=== PATIENT | female | born 1940 | race Caucasian/White ===

== ENCOUNTER → 2016-10-10 | Outpatient (CLI) | payer OTHER, BC ==
[~2016-10-10] MED LIST: ASPI325T39 PO; CHOL2000 PO; CLON0.5T3 PO; HYDR1TAB2 PO; LEVO150T9 PO; METO25TA3 PO; MISCCAP80 PO; MULT1CHW44 PO; PARO1TAB27 PO; PRLSR20 PO; RXC5 PO; SPRIN/30 INH; SYMIN160 INH; VNTHFA/IN INH
== END | disposition home or self-care (01) ==
LOC: C.LAB 14:10 → EDSTATUS 15:30 → C.LAB 15:32
PROVIDERS: ATTEND Surgery
DX: C34.90 Malignant neoplasm of unspecified part of unspecified bronchus or lung (principal)

== ENCOUNTER 2016-10-24 08:54 | Inpatient (IN) | payer OTHER, BC ==
[2016-10-16 15:21] VITALS: BMI 35.0
[~2016-10-24] VITALS: Ht 160 cm; Wt 97.0 kg
[2016-10-24] VITALS (33 sets, daily range): BP systolic 59–179; BP diastolic 40–107; PULSE 78–99; TEMP 36.5–36.9; O2SAT 90–98; Ht 160 cm; Wt 97.0 kg
[~2016-10-24 08:54] MED LIST changes: +DEXAMETHASONE SOD INJ 4 MG/ML VIAL ONE; +EpHEDrine SULFATE INJ 50 MG/ML AMP ONE; +FENTANYL CITRATE INJ 50 MCG/1 ML 2 ML VIAL ONE; +GLYCOPYRROLATE INJ 0.2 MG/ML VIAL ONE; -HYDR1TAB2 PO; +LACTATED RINGER'S 1000ML 1,000 ML IV SCH; +LIDOCAINE HCL 2% 2 ML VIAL (20MG/ML) ONE; +MIDAZOLAM HCL 1 MG/ML 2ML VIAL ONE; +NEOSTIGMINE METHYLSULFATE 5 MG/5 ML SYR ONE; +ONDANSETRON INJ 2 MG/ML 2 ML VIAL ONE; +PHENYLEPHRINE HCL INJ 10 MG/ML VIAL ONE; +PROPOFOL IV EMULSION 10 MG/ML 20 ML VIAL IV ONE; +ROCURONIUM BROMIDE 10 MG/ML 5 ML VIAL ONE; -RXC5 PO
[2016-10-24] MEDS ORDERED: NALOXONE HCL 0.4 MG/1 ML VIAL/CARP IV PRN (09:45)
[2016-10-24] MEDS ORDERED: EpHEDrine SULFATE INJ 50 MG/ML AMP IV PRN (09:45)
[2016-10-24] MEDS ORDERED: ATROPINE SULFATE 0.1 MG/ML 5ML SYR IV PRN (09:45)
[2016-10-24] MEDS ORDERED: MEPERIDINE HCL 25 MG/ML CARP IV PRN (09:45)
[2016-10-24] MEDS ORDERED: MoRPHine SULFATE 10 MG/ML CARP/VIAL IV PRN (09:45)
[2016-10-24] MEDS ORDERED: FLUMAZENIL 0.1 MG/1 ML 10 ML VIAL IV PRN (09:45)
[2016-10-24] MEDS ORDERED: ONDANSETRON INJ 2 MG/ML 2 ML VIAL IV PRN ×2 (09:45→14:30)
[2016-10-24] MEDS ORDERED: PHENYLEPHRINE 100MCG/ML 5ML SYR IV PRN (09:45)
[2016-10-24] MEDS ORDERED: LABETALOL HCL IV 5 MG/ML 20ML IV PRN (09:45)
[2016-10-24] MEDS ORDERED: HYDROmorphone INJ 1 MG/ML SYR IV PRN (09:45)
--- NOTE | 2016-10-24 10:18 | History & Physical Bridge Note ---
H&P Re-Evaluation Bridge Note: I have examined the patient, reviewed the History & Physical and in the interval since the performance of the History & Physical I have noted the following changes of clinical significance: No changes noted
[2016-10-24] MEDS ORDERED: BUPIVACAINE LIPOSOME 1/3% 266 MG/20 ML VIAL INFIL ONE (10:22)
[2016-10-24] MEDS ORDERED: SODIUM CHLORIDE 0.9% PF 50 ML VIAL ONE (10:22)
[2016-10-24] MEDS ORDERED: DEXAMETHASONE SOD INJ 4 MG/ML VIAL ONE (11:27)
[2016-10-24] MEDS ORDERED: ROCURONIUM BROMIDE 10 MG/ML 5 ML VIAL ONE (11:44)
[2016-10-24] MEDS ORDERED: ESMOLOL HCL 10 MG/ML 10 ML VIAL ONE (11:51)
[2016-10-24] MEDS ORDERED: FENTANYL CITRATE INJ 50 MCG/1 ML 2 ML VIAL ONE ×2 (12:21→13:26)
[2016-10-24] MEDS ORDERED: ONDANSETRON INJ 2 MG/ML 2 ML VIAL ONE (13:30)
[2016-10-24] MEDS ORDERED: PROPOFOL IV EMULSION 10 MG/ML 20 ML VIAL IV ONE ×3 (13:30)
[2016-10-24] MEDS ORDERED: MINERALS PO SCH (14:30)
[2016-10-24] MEDS ORDERED: MULTIPLE VITAMINS PO SCH (14:30)
[2016-10-24] MEDS ORDERED: ALBUTEROL HFA 8 GM INHALER INH PRN (14:30)
--- NOTE | 2016-10-24 15:15 | DIAGNOSTIC IMAGING REPORT ---
SINGLE VIEW CHEST CLINICAL HISTORY: Postoperative examination. Status post right middle lobe resection. FINDINGS: An AP, portable, upright chest radiograph is correlated with chest CT dated 09/27/2016. The examination is degraded by portable technique and patient rotation. The heart is enlarged and there is atherosclerotic calcification of the thoracic aorta. There is prominence of the central pulmonary vessels. There are postoperative changes and volume loss consistent with a right middle lobe resection. Airspace opacities are present at both lung bases. A chest tube is noted at the right apex. No large pleural effusion or pneumothorax is seen. The skeletal structures are osteopenic. Degenerative change is noted throughout the thoracic spine. Subcutaneous emphysema is noted along the right chest wall. IMPRESSION: 1. There are postoperative changes from right middle lobe resection. 2. A chest tube is present at the right apex. No pneumothorax is identified post procedure. 3. There are bibasilar airspace opacities. No large pleural effusion is seen. 4. Cardiomegaly with prominence of the central pulmonary vessels. Correlate clinically for evidence of mild congestive change. Electronically signed by: Carlton Toscano M.D. 10/24/2016 3:13 PM Dictated Date/Time: 10/24/2016 3:11 PM
--- NOTE | 2016-10-24 15:34 | Anesthesiology Progress Note ---
Anesthesia Post Op Note Date & Time Oct 24, 2016 at 15:33 Vital Signs Pain Intensity: 0 Vital Signs Past 12 Hours Date Time Temp Pulse Resp B/P Pulse Ox O2 Delivery O2 Flow Rate FiO2 10/24/16 15:20 17 10/24/16 15:20 76 17 127/50 10/24/16 15:15 78 21 129/53 97 10/24/16 15:15 76 21 10/24/16 15:11 121/57 10/24/16 15:10 76 15 10/24/16 15:10 78 15 96 10/24/16 15:06 130/58 10/24/16 15:05 80 18 10/24/16 15:05 79 18 96 10/24/16 15:00 86 16 10/24/16 15:00 85 16 141/49 93 10/24/16 15:00 36.0 81 18 141/49 98 Mask 10 10/24/16 09:18 36.9 85 20 179/96 96 Room Air Notes Mental Status: alert / awake / arousable, participated in evaluation Pt Amnestic to Procedure: Yes Nausea / Vomiting: adequately controlled Pain: adequately controlled Airway Patency, RR, SpO2: stable & adequate BP & HR: stable & adequate Hydration State: stable & adequate Anesthetic Complications: no major complications apparent
[2016-10-24] MEDS ORDERED: MoRPHine SULFATE 2 MG/ML CARP ONE (16:58)
[2016-10-24] MEDS: ACETAMINOPHEN IV 1,000 MG in EMPTY BAG 0 ML IV SCH (17:30)
[2016-10-24] MEDS ORDERED: NOREPINEPHRINE BIT INJ 8 MG in DEXTROSE 5% 500ML 500 ML IV PRN (17:30)
[2016-10-24] MEDS: D5W AND 1/2NSS 1,000 ML IV SCH (17:30)
[2016-10-24] MEDS: CEFAZOLIN IV 2,000 MG in DEXTROSE 5% 50ML 100 ML IV SCH (17:30)
[2016-10-24] MEDS: KETOROLAC TROMETHAMINE 15 MG/ML VIAL IV. SCH (17:39)
--- NOTE | 2016-10-24 17:39 | Medical Student: [facility] ---
Immediate Operative Summary Operative Date Oct 24, 2016. Pre-Operative Diagnosis Right middle lobe nodule Post-Operative Diagnosis Same as above Procedure(s) Performed Right thoracoscopy with wedge resection of right middle lobe followed by right middle lobectomy, removal of mediastinal lymph nodes, and chest tube placement Surgeon Dr. Major Blood Bank Calendar Control Clerk Surgeon(s) Burt Ramon PA-C Estimated Blood Loss 100 mL Findings Neoplasm of right middle lobe Specimens Wedge resection of right middle lobe, mediastinal lymph nodes (R12, 7), right middle lobe Drains Mathews catheter Anesthesia General/endotracheal intubation (double lumen) Complication(s) None Disposition Recovery Room / PACU
--- NOTE | 2016-10-24 18:13 | OPERATIVE REPORT ---
DATE OF OPERATION: 10/24/2016 REASON FOR PROCEDURE: Right middle lobe mass. POSTOPERATIVE DIAGNOSIS: Same. PROCEDURES: 1. Thoracoscopic wedge resection of right middle lobe. 2. Thoracoscopic right middle lobectomy. 3. Mediastinal lymph node dissection. SURGEON: Dr. Major. PICTURES EDITOR: Paul Ramon PA-C. SECOND PICTURES EDITOR: Yanely Hudson. ANESTHESIA: General anesthesia endotracheal intubation. INDICATION FOR PROCEDURE AND FINDINGS: Annette Pompa is a 76-year-old female with a history of cigarette smoking, who was found to have a mass, certainly that was suspicious in her right middle lobe. We had a long talk about this in the office and I felt that this could be resected. After much discussion, we elected to proceed with a biopsy and possible lobectomy. On 10/24/2016, the patient was brought to the operating room and underwent uncomplicated right thoracoscopy. I was able to find this mass and then I wedged it out. Dr. Dominic Howell felt that it was atypical, but he did not have enough tissue to call it a definite carcinoma on frozen section. I went ahead and decided to remove the middle lobe given the frozen section findings. I then performed a right middle lobectomy without difficulty with a lymph node dissection. We used an Exparel block. She tolerated it well. DESCRIPTION OF PROCEDURE: The patient was brought to the operating room and laid in the supine position. General anesthesia induced and endotracheal intubation was performed with a double lumen tube. The patient was placed in left lateral decubitus position, right chest prepped and draped in usual sterile fashion. Incision was made a bit anterior and interspace below the scapular tip. Upon entering the chest with 5 mm port infusing CO2, we then put a 5-mm port and we were able to see quite well. This was switched over to a 12-mm port with 10 mm 30 degree scope. I then made another incision anteriorly and inferiorly and then another incision a bit more medially at about the fourth interspace. With these 3 incisions, we were able to palpate this mass. I wedged this out and sent it off to the lab. While waiting for this, I mobilized the fissure between the upper lobe and middle lobe. I then also mobilized the fissure between the lower lobe and the middle lobe. She had very well-developed fissures. I also isolated the vein and when the frozen section came back as possibly carcinoma, I went ahead and divided the middle pulmonary vein. I then dissected out more medially until I completed the fissure. I took out several lymph nodes. I was able to go around the right middle lobe bronchus without difficulty and fired Endo-LA stapler. I then was able to get the one arterial branch to the right middle lobe and I fired the stapler across this. Lifting this up, it could be seen that there was another vein draining the middle lobe and I had to take this Endo-LA stapler. After this, I simply fired along the fissure and delivered the right middle lobe off the field. I then checked this with warm saline infused in the chest and I did not see evidence of a leak anywhere. 266 mg of Exparel were mixed with 60 mL of normal saline injected from the 2nd to the 11th rib and intercostal block intrathoracically. We then placed a chest tube through the anterior thoracoscopy port and directed it towards the apex. It was held in place with a heavy silk suture. 0 Vicryl was used to close the skin. She tolerated it well and was extubated in the room. Blood loss was negligible. I attest to the content of the Intraoperative Record and any orders documented therein. Any exceptio ns are noted below.
[2016-10-24] MEDS: DOCUSATE SODIUM 100 MG CAP PO SCH (20:40)
[2016-10-24] MEDS: LACTOBACILLUS ACIDOPHILUS (FLORANEX) TAB PO SCH (20:40)
[2016-10-24] MEDS: ASPIRIN 325 MG ECTAB PO SCH (20:40)
[2016-10-24] MEDS: BUDESONIDE/FORMOTEROL FUMARATE 160/4.5 60 PUFFS/INHALER INH SCH (20:41)
[2016-10-24] MEDS: METOCLOPRAMIDE HCL INJ 5 MG/ML 2 ML VIAL IV. SCH (20:41)
[2016-10-24] MEDS: PANTOprazole SOD 40 MG TAB PO SCH (20:42)
[2016-10-24] MEDS: METOPROLOL SUCC 25MG EXT REL TAB PO SCH (20:42)
[2016-10-25] VITALS (10 sets, daily range): BP systolic 92–185; BP diastolic 39–89; PULSE 71–88; TEMP 36.7–37.2; O2SAT 92–98
[2016-10-25] MEDS: MoRPHine SULFATE 2 MG/ML CARP IV PRN ×5 (00:42→23:58)
[2016-10-25] MEDS: KETOROLAC TROMETHAMINE 15 MG/ML VIAL IV. SCH ×3 (02:15→18:14)
[2016-10-25] MEDS: CEFAZOLIN IV 2,000 MG in DEXTROSE 5% 50ML 100 ML IV SCH (02:16)
[2016-10-25] MEDS: ACETAMINOPHEN IV 1,000 MG in EMPTY BAG 0 ML IV SCH ×3 (02:16→18:12)
--- NOTE | 2016-10-25 02:19 | Critical Care Consultation ---
Critical Care Consultation Date of Consultation: Oct 24, 2016 Late Entry Attending Physician: Rashard Major MD Reason for Consultation: Post Surgical Observation & Management History of Present Illness Annette Pompa is a 76yo female who presents to the ICU status post thorascopic wedge resection of right middle lobe, right middle lobectomy, mediastinal lymph node dissection by Dr. Major. According to Dr. Brown's operative record the mass was wedged out and felt to be atypical however there was not enough tissue for a complete frozen section and thus he continued with the right middle lobectomy and lymph node dissection. He did use an Exparel block which has provided significant pain relief until recently after nursing readjusted pt in bed; at which point she is complained of pain below her right breast/armpit. The pain is sharp with breathing. The pain has correlated to the insertion site of her chest tube. She states that it is a 6 out of 10 prior to receiving a dose of morphine this morning. She denies shortness of breath or trouble breathing. Patient denies sore throat due to endotracheal tube during surgery. She did state she's had a few coughing fits post surgery. She denies fever or chills, chest pain, abdominal pain, nausea or vomiting. She states that she does have some numbness and tingling in her hands, but states that this is chronic for her. Patient was admitted for previously stated procedure after a well-known nodule of 15 years demonstrated growth and irregular margins on a recent scan. Patient 's diagnosis include COPD due to prior tobacco abuse. She states she had a significant medical workup including a stress test, EKGs, breathing tests prior to surgery. Otherwise her past medical history includes reflux, depression, hypertension, dyslipidemia, hypothyroidism. Past Medical/Surgical History Medical Problems: COPD Depression Esophageal reflux Essential hypertension Dyslipidemia Hypothyroidism Solitary pulmonary nodule h/o Acute pneumonitis Surgical history section Laparoscopic cholecystectomy Right middle lobectomy Wedge resection of right middle lobe Mediastinal lymph node dissection Family History Mother: Hypertension; [place] at 70; definite 93 Father: Cardiac disease, hypertension; definite plan my D6 Only child, no siblings Daughter: Diabetes mellitus Social History Smoking Status: Former Smoker Alcohol Use: none Marital Status: Housing Status: lives with significant other Occupation Status: retired (former beautician) Allergies Coded Allergies: Bupropion (Verified Adverse Reaction, Intermediate, PANIC ATTACKS, 10/24/16 ) Statins (Verified Adverse Reaction, Intermediate, MUSCLE ACHES, 10/24/16) Home Medications Scheduled Albuterol Hfa (Ventolin Hfa), 2-4 PUFFS INH PRN Aspirin (Aspirin Ec), 325 MG PO HS Budesonide/Formoterol Fumarate (Symbicort 160/4.5 Inhaler ), 2 PUFFS INH BID Cholecalciferol (Vitamin D3), 1 CAP PO QAM Levothyroxine Sodium (Levothyroxine Sodium), 1 TAB PO QAM Metoprolol Succ (Toprol Xl) (Toprol-Xl), 25 MG PO QPM Multiple Vitamins W/ Minerals (Airborne Gummies), 3 TAB PO PRN Omeprazole (Prilosec), 40 MG PO HS Paroxetine (Paxil), 10 MG PO QAM Probiotic Product (Probiotic), 1 TAB PO QPM Tiotropium Powersite (Spiriva Handihaler), 1 CAP INH QAM Current Inpatient Medications Current Inpatient Medications Medications (Trade) Dose Ordered Sig/Marcos Route Start Time Stop Time Status Last Admin Dose Admin Oxycodone HCl 5 mg 5 mg Q6H PRN PO 10/24/16 14:30 11/07/16 14:29 Acetaminophen/ Empty Bag (Ofirmev Iv/ Empty Iv Bag 100ml) 100 ml @ 400 mls/hr Q8H IV 10/24/16 18:00 11/23/16 14:29 10/24/16 17:30 400 MLS/HR Albuterol (Ventolin Hfa Inhaler) 2 puffs DAILY PRN INH 10/24/16 14:30 11/23/16 14:29 Aspirin (Ecotrin Tab) 325 mg HS PO 10/24/16 21:00 11/23/16 20:59 10/24/16 20:40 325 MG Budesonide/ Formoterol Fumarate (Symbicort 160/ 4.5 Inh) 2 puffs BID INH 10/24/16 21:00 11/23/16 20:59 10/24/16 20:41 2 PUFFS Levothyroxine Sodium (Synthroid Tab) 150 mcg DAILYBB PO 10/25/16 06:00 11/24/16 05:59 Metoprolol Succinate (Toprol Xl Tab) 25 mg QPM PO 10/24/16 21:00 11/23/16 20:59 10/24/16 20:42 25 MG Paroxetine HCl (pAXil TAB) 10 mg QAM PO 10/25/16 09:00 11/24/16 08:59 Tiotropium Powersite (Spiriva Handihaler Inhaler) 1 puff QAM INH 10/25/16 09:00 11/24/16 08:59 Cholecalciferol (Vitamin D Tab) 2,000 inter.unit QAM PO 10/25/16 09:00 11/24/16 08:59 Pantoprazole Sodium (Protonix Tab) 40 mg HS PO 10/24/16 21:00 11/23/16 20:59 10/24/16 20:42 40 MG Lactobacillus Acidophilus (Floranex Tab) 1 tab QPM PO 10/24/16 21:00 11/23/16 20:59 10/24/16 20:40 1 TAB Enoxaparin Sodium 40 mg 40 mg DAILY SQ 10/25/16 09:00 11/24/16 08:59 UNV Dextrose/Sodium Chloride (D5W And 1/2nss) 1,000 ml @ 100 mls/hr Q10H IV 10/24/16 14:24 11/23/16 14:23 10/24/16 17:30 100 MLS/HR Ondansetron HCl (Zofran Inj) 4 mg Q4H PRN IV 10/24/16 14:30 11/23/16 14:29 10/24/16 16:54 4 MG Docusate Sodium 100 mg 100 mg BID PO 10/24/16 21:00 11/23/16 20:59 10/24/16 20:40 100 MG Cefazolin Sodium/ Dextrose (Ancef Iv/D5 50ml) 110 ml @ 100 mls/hr Q8H IV 10/24/16 18:00 10/25/16 03:05 10/24/16 17:30 100 MLS/HR Ketorolac Tromethamine (Toradol Inj) 15 mg Q8H IV. 10/24/16 18:00 10/26/16 10:01 10/24/16 17:39 15 MG Metoclopramide HCl (Reglan Inj) 10 mg Q8 IV. 10/24/16 22:00 10/25/16 21:59 10/24/16 20:41 10 MG Morphine Sulfate (MoRPHine SULFATE INJ) 1 mg Q1H PRN IV 10/24/16 14:30 11/07/16 14:29 10/25/16 00:42 1 MG Morphine Sulfate 2 mg 2 mg Q1H PRN IV 10/24/16 17:00 11/07/16 16:59 Norepinephrine Bitartrate/ Dextrose (Levophed Inj/ D5W 500ml) 508 ml @ 0 mls/hr Q0M PRN IV 10/24/16 17:30 11/23/16 17:29 Review of Systems 12 systems reviewed and negative other than previously mentioned in the HPI. Physical Exam Date Time Temp Pulse Resp B/P Pulse Ox O2 Delivery O2 Flow Rate FiO2 10/25/16 00:01 36.8 87 17 127/49 97 3.0 10/24/16 23:59 96 Nasal Cannula 3.0 10/24/16 22:02 91 19 96 103/42 10/24/16 21:56 36.6 10/24/16 21:47 91 16 96 94/42 10/24/16 21:46 92 15 96 101/45 10/24/16 21:31 93 18 96 105/40 10/24/16 21:16 92 21 96 101/40 10/24/16 21:01 91 19 95 114/42 10/24/16 20:46 93 18 95 111/48 10/24/16 20:31 95 17 96 121/49 10/24/16 20:01 99 21 156/107 95 143/60 10/24/16 20:00 Nasal Cannula 3.0 10/24/16 19:46 94 27 95 126/55 10/24/16 19:31 93 14 95 128/58 10/24/16 19:16 93 18 95 148/63 10/24/16 19:01 94 12 154/49 96 130/58 10/24/16 18:46 97 25 95 137/55 10/24/16 18:31 92 19 90/76 90 118/53 10/24/16 18:18 36.7 10/24/16 18:16 89 17 96 62/45 10/24/16 18:01 88 18 96 59/42 10/24/16 18:00 89 18 131/42 60/44 10/24/16 18:00 Nasal Cannula 3.0 4/13/17 17:46 87 19 95 75/49 10/24/17 17:45 86 20 95 10/24/17 17:35 36.5 10/24/17 17:31 84 14 130/45 96 17 17:30 83 16 17 17:15 82 19 96 10/24/17 17:01 84 17 126/53 95 118/46 10/24/17 17:00 84 12 98 113/46 10/24/16 17:00 36.5 17 16:43 83/59 17 16:20 36.5 10/24/17 16:00 78 15 121/57 17 15:58 79 14 95 10/24/16 15:58 78 14 10/24/16 15:55 124/49 10/24/16 15:53 78 17 17 15:53 36.8 17 15:53 78 17 95 17 15:50 122/54 10/24/16 15:48 77 17 17 15:48 77 17 95 17 15:47 76 17 94 17 15:47 76 17 17 15:45 121/49 17 15:42 77 16 95 17 15:42 77 16 17 15:41 118/46 17 15:37 75 18 17 15:37 75 18 94 10/24/17 15:36 76 15 125/48 94 10/24/17 15:36 77 15 17 15:31 79 15 94 17 15:31 79 15 13/17 15:30 119/55 10/24/17 15:26 77 15 10/24/17 15:26 77 15 126/52 95 10/24/17 15:21 77 17 98 10/24/17 15:21 77 17 10/24/17 15:20 17 10/24/17 15:20 76 17 127/50 10/24/17 15:15 78 21 129/53 97 10/24/17 15:15 76 21 13/17 15:11 121/57 10/24/17 15:10 76 15 10/24/17 15:10 78 15 96 10/24/16 15:06 130/58 10/24/16 15:05 80 18 10/24/16 15:05 79 18 96 10/24/16 15:00 86 16 10/24/16 15:00 85 16 141/49 93 10/24/16 15:00 36.0 81 18 141/49 98 Mask 10 10/24/16 09:18 36.9 85 20 179/96 96 Room Air Vital Signs - as noted Laboratory Data - as noted Physical Exam: General - NAD, 3L nasal cannula in place Eyes - PERRL, EOMI No icterus, gaze conjugate ENT - Mucosa dry no lesions or candidiasis Neck - Supple, trachea midline, no masses or lymphadenopathy, no JVD or bruits Lungs - Chest tube to right thorax, surgical dressing dry and intact; no crepitus or erythema or drainage noted. No paradoxical chest wall movement, diminished bilaterally, no wheezes, rales, or rhonchi Heart - Reg rate and rhythm, No murmur, rubs, clicks, or gallops appreciated Abdomen - BS present but decreased, no bruits noted, tympanic to percussion, soft, nontender, nondistended, no organomegaly Extremities - No edema, pedal pulses intact Neuro - A&OX4 Strength extremities equal and appropriate bilaterally Reflexes: Bicep, brachioradialis, patellar, and plantar normal and equal CN:PERRL, EOMI, no facial asymmetry, uvula/tongue midline Laboratory Results Preop labs 07/28/14 include sodium 142; potassium 4.3; B UN 13; creatinine 0.9; glucose 95; AST 50; ALP 43; total cholesterol 255; LDL 187; HDL 53; triglycerides 76; TSH 0.35 Preop EKG 10/25/14: Normal sinus rhythm 71 bpm normal EKG Diagnostic Results SINGLE VIEW CHEST CLINICAL HISTORY: Postoperative examination. Status post right middle lobe resection. FINDINGS: An AP, portable, upright chest radiograph is correlated with chest CT dated 09/27/2016. The examination is degraded by portable technique and patient rotation. The heart is enlarged and there is atherosclerotic calcification of the thoracic aorta. There is prominence of the central pulmonary vessels. There are postoperative changes and volume loss consistent with a right middle lobe resection. Airspace opacities are present at both lung bases. A chest tube is noted at the right apex. No large pleural effusion or pneumothorax is seen. The skeletal structures are osteopenic. Degenerative change is noted throughout the thoracic spine. Subcutaneous emphysema is noted along the right chest wall. IMPRESSION: 1. There are postoperative changes from right middle lobe resection. 2. A chest tube is present at the right apex. No pneumothorax is identified post procedure. 3. There are bibasilar airspace opacities. No large pleural effusion is seen. 4. Cardiomegaly with prominence of the central pulmonary vessels. Correlate clinically for evidence of mild congestive change. Electronically signed by: Carlton Toscano M.D. 10/24/2016 3:13 PM Dictated Date/Time: 10/24/2016 3:11 PM Assessment & Plan (1) Pulmonary nodule, right (2) Post-op pain (3) COPD (chronic obstructive pulmonary disease) (4) Hypertension (5) Acid reflux Pulmonary: * Postop day # 0: Prophylactic antibiotics * Continue prescribed postop pain management * Management per Dr. Major * Chest tube in place to intermittent suction * Supplemental oxygen as needed; currently on 3 L with adequate saturations * Tri-flow in place * Repeat chest x-ray on postop day #1 Cardiac: * Patient previously had episodes of hypotension with anesthesia, currently normotensive * Monitor on telemetry: Increased risk of postop A. fib * Metoprolol 25 mg at night GI: * Patient currently not passing gas with little appetite * Regular diet and place * Monitor for flatus and bowel movement * Stool softener in place Neuro: * Continue pain management as per Dr. Major's management for postop pain Renal/electrolytes: * PRP and electrolytes in morning * Continue IV fluids: D5W 1/2NS * Monitor urine output Endocrine: * Start home Synthroid dose of 150 g daily * TSH level preop as above * No diabetic diagnosis * Monitor blood sugars per protocol Heme: * CBC in morning * DVT prophylaxis: We'll hold chemical prophylaxis in the postop setting, SCDs in place Access: * Left peripheral hand IV in place CCT: 0 minutes; Level 4 Inpatient Consult; Not including any billable procedures. Thank you for including us in the care of this patient. Please review Dr. Ricardo Trevino's addendum for further recommendations. I have personally evaluated and examined this patient. I agree with assessment and plan of Jacqueline Ramirez PA-C. ICU observation s/p wedge resection.
[2016-10-25 03:33] LABS: HEMATOCRIT 32.6 % (37-47); MEAN CELL VOLUME 85.6 fL (80-100); MEAN CORPUSCULAR HEMOGLOBIN 28.6 pg (25-34); MEAN CORPUSCULAR HGB CONC 33.4 g/dl (32-36); MEAN PLATELET VOLUME 11.2 fL (7.4-10.4); PLATELET COUNT 169 K/uL (130-400); RED BLOOD COUNT 3.81 M/uL (4.2-5.4); WHITE BLOOD COUNT 12.39 K/uL (4.8-10.8)
[2016-10-25 03:58] LABS: BUN/CREATININE RATIO 16.8 (10-20); CALCIUM 7.7 mg/dl (8.5-10.1); CREATININE 0.88 mg/dl (0.60-1.20); MAGNESIUM 1.8 mg/dl (1.8-2.4); PHOSPHORUS 2.9 mg/dl (2.5-4.9); POTASSIUM 4.2 mmol/L (3.5-5.1)
[2016-10-25] MEDS: D5W AND 1/2NSS 1,000 ML IV SCH (05:10)
[2016-10-25] MEDS: LEVOTHYROXINE 150 MCG TAB PO SCH (06:07)
[2016-10-25] MEDS: METOCLOPRAMIDE HCL INJ 5 MG/ML 2 ML VIAL IV. SCH ×2 (06:07→14:42)
--- NOTE | 2016-10-25 07:44 | DIAGNOSTIC IMAGING REPORT ---
CHEST ONE VIEW PORTABLE HISTORY: Status post right middle lobectomy. COMPARISON: Chest 10/24/2016. FINDINGS: Suspect a tiny right basilar pneumothorax. Right-sided chest tube remains in good position. The heart is stable in size. Bibasilar linear densities have improved. No evidence for pulmonary edema. No pleural effusions. IMPRESSION: 1. Suspect a tiny right basilar pneumothorax. Right-sided chest tube is in good position. 2. Bibasilar linear densities have improved. Electronically signed by: Zeyad Sandoval M.D. 10/25/2016 7:42 AM Dictated Date/Time: 10/25/2016 7:41 AM
[2016-10-25] MEDS: TIOTROPIUM BROMIDE 5 PUFF/90 MCG INH INH SCH (07:57)
[2016-10-25] MEDS: BUDESONIDE/FORMOTEROL FUMARATE 160/4.5 60 PUFFS/INHALER INH SCH ×2 (07:58→21:11)
[2016-10-25] MEDS: PAROXETINE 20 MG TAB PO SCH (07:59)
[2016-10-25] MEDS: DOCUSATE SODIUM 100 MG CAP PO SCH ×2 (07:59→21:12)
[2016-10-25] MEDS: CHOLECALCIFEROL 1000 INTER.UNIT TAB PO SCH (08:00)
[2016-10-25] MEDS: ENOXAPARIN 40 MG/0.4 ML SYR SQ SCH (08:06)
--- NOTE | 2016-10-25 08:30 | Anesthesiology Progress Note ---
Anesthesia Post Op Note Date & Time Oct 25, 2016 at 08:28 Vital Signs Pain Intensity: 7.0 Vital Signs Past 12 Hours Date Time Temp Pulse Resp B/P Pulse Ox O2 Delivery O2 Flow Rate FiO2 10/25/16 06:00 82 15 131/70 95 Nasal Cannula 2.0 10/25/16 04:00 96 Nasal Cannula 3.0 10/25/16 04:00 36.8 86 21 106/39 98 Nasal Cannula 3.0 10/25/16 02:00 87 17 92/39 97 Nasal Cannula 3.0 10/25/16 00:01 36.8 87 17 127/49 97 3.0 10/24/16 23:59 96 Nasal Cannula 3.0 10/24/16 22:02 91 19 96 103/42 10/24/16 21:56 36.6 10/24/16 21:47 91 16 96 94/42 10/24/16 21:46 92 15 96 101/45 10/24/16 21:31 93 18 96 105/40 10/24/16 21:16 92 21 96 101/40 10/24/16 21:01 91 19 95 114/42 10/24/16 20:46 93 18 95 111/48 10/24/16 20:31 95 17 96 121/49 Notes Anesthetic Complications: no major complications apparent
--- NOTE | 2016-10-25 10:25 | Critical Care Progress Note ---
Critical Care Progress Note Date of Service Oct 25, 2016. ICU Day ICU Day Number: [address] Trevino Subjective Mrs Pompa felt great today. Denied any concerns. Was sitting comfortably eating breakfast. Objective GENERAL: Awake, alert, well-appearing, in no acute distress HENT: Normocephalic, atraumatic. Oropharynx unremarkable. EYES: Normal conjunctiva. Sclera non-icteric. NECK: Supple. No nuchal rigidity. FROM. No JVD. RESPIRATORY: Clear to auscultation. CARDIAC: Regular rate, normal rhythm. Extremities warm and well perfused. Pulses equal. ABDOMEN: Soft, non-distended. No tenderness to palpation. No rebound or guarding. No masses. LOWER EXTREMITIES: Calves are equal size bilaterally and non-tender. No edema. No discoloration. NEURO: Normal sensorium. No sensory or motor deficits noted. SKIN: No rash or jaundice noted. Current SOFA Score SOFA Score Response (Comments) Value Level of Hypotension No Hypotension 0 Total 0 Assessment & Plan Neuro: GCS 15 Pain manageable Pulmonary: Postop day # 1. Chest tube in situ CXR today: R chest tube in good position, small R basilar PTx. Bibasilar linear densities have improved. Cardiac: No events on telemetry Continue metoprolol 25mg nightly GI: Tolerating regular diet Renal: Electrolytes WNL Moderate urine output, will likely improve with PO intake Endo: Will restart Synthroid at home dose BSGs ~150 Heme: Hb 10.9, Hct 32.6 Plts 169 SVT prophylaxis: SCDs Thank you for including us in the care of this patient. Please review Dr. Ricardo Trevino's addendum for further recommendations. Resident Physician Supervision Note: Dr. Brandon was resident physician during care of patient. I separately evaluated patient and did history and exam. I discussed the case with the resident and generally agree with the findings and plan. Documented By: Ricardo Trevino DO Consults & Procedures Consultants: [employer] Cr[employer] Operator Procedures: LLL VATS procedure Data Medications: Current Inpatient Medications Medications (Trade) Dose Ordered Sig/Marcos Route Start Time Stop Time Status Last Admin Dose Admin Oxycodone HCl 5 mg 5 mg Q6H PRN PO 10/24/16 14:30 11/07/16 14:29 Acetaminophen/ Empty Bag (Ofirmev Iv/ Empty Iv Bag 100ml) 100 ml @ 400 mls/hr Q8H IV 10/24/16 18:00 11/23/16 14:29 10/25/16 02:16 400 MLS/HR Albuterol (Ventolin Hfa Inhaler) 2 puffs DAILY PRN INH 10/24/16 14:30 11/23/16 14:29 Aspirin (Ecotrin Tab) 325 mg HS PO 10/24/16 21:00 11/23/16 20:59 10/24/16 20:40 325 MG Budesonide/ Formoterol Fumarate (Symbicort 160/ 4.5 Inh) 2 puffs BID INH 10/24/16 21:00 11/23/16 20:59 10/25/16 07:58 2 PUFFS Levothyroxine Sodium (Synthroid Tab) 150 mcg DAILYBB PO 10/25/16 06:00 11/24/16 05:59 10/25/16 06:07 150 MCG Metoprolol Succinate (Toprol Xl Tab) 25 mg QPM PO 10/24/16 21:00 11/23/16 20:59 10/24/16 20:42 25 MG Paroxetine HCl (pAXil TAB) 10 mg QAM PO 10/25/16 09:00 11/24/16 08:59 10/25/16 07:59 10 MG Tiotropium [place] (Spiriva Handihaler Inhaler) 1 puff QAM INH 10/25/16 09:00 11/24/16 08:59 10/25/16 07:57 1 PUFF Cholecalciferol (Vitamin D Tab) 2,000 inter.unit QAM PO 10/25/16 09:00 11/24/16 08:59 10/25/16 08:00 2,000 INTER.UNIT Pantoprazole Sodium (Protonix Tab) 40 mg HS PO 10/24/16 21:00 11/23/16 20:59 10/24/16 20:42 40 MG Lactobacillus Acidophilus (Floranex Tab) 1 tab QPM PO 10/24/16 21:00 11/23/16 20:59 10/24/16 20:40 1 TAB Enoxaparin Sodium (Lovenox Inj) 40 mg DAILY SQ 10/25/16 09:00 11/24/16 08:59 10/25/16 08:06 40 MG Ondansetron HCl (Zofran Inj) 4 mg Q4H PRN IV 10/24/16 14:30 11/23/16 14:29 10/24/16 16:54 4 MG Docusate Sodium (coLACE CAP) 100 mg BID PO 10/24/16 21:00 11/23/16 20:59 10/25/16 07:59 100 MG Ketorolac Tromethamine (Toradol Inj) 15 mg Q8H IV. 10/24/16 18:00 10/26/16 10:01 10/25/16 02:15 15 MG Metoclopramide HCl (Reglan Inj) 10 mg Q8 IV. 10/24/16 22:00 10/25/16 21:59 10/25/16 06:07 10 MG Morphine Sulfate (MoRPHine SULFATE INJ) 1 mg Q1H PRN IV 10/24/16 14:30 11/07/16 14:29 10/25/16 05:10 1 MG Morphine Sulfate 2 mg 2 mg Q1H PRN IV 10/24/16 17:00 11/07/16 16:59 Norepinephrine Bitartrate/ Dextrose (Levophed Inj/ D5W 500ml) 508 ml @ 0 mls/hr Q0M PRN IV 10/24/16 17:30 11/23/16 17:29 I & O: 24-Hour Column 10/25/16 08:00 Intake Total 4146 ml Output Total 525 ml Balance 3621 ml Vital Signs: Date Time Temp Pulse Resp B/P Pulse Ox O2 Delivery O2 Flow Rate FiO2 10/25/16 09:48 37.0 82 16 154/58 92 Nasal Cannula 2.0 10/25/16 09:15 36.9 71 20 98 2.0 10/25/16 08:00 97 10/25/16 08:00 36.9 71 20 185/89 98 Nasal Cannula 2.0 10/25/16 06:00 82 15 131/70 95 Nasal Cannula 2.0 10/25/16 04:00 96 Nasal Cannula 3.0 10/25/16 04:00 36.8 86 21 106/39 98 Nasal Cannula 3.0 10/25/16 02:00 87 17 92/39 97 Nasal Cannula 3.0 10/25/16 00:01 36.8 87 17 127/49 97 3.0 10/24/16 23:59 96 Nasal Cannula 3.0 10/24/16 22:02 91 19 96 103/42 10/24/16 21:56 36.6 10/24/16 21:47 91 16 96 94/42 10/24/16 21:46 92 15 96 101/45 10/24/16 21:31 93 18 96 105/40 10/24/16 21:16 92 21 96 101/40 10/24/16 21:01 91 19 95 114/42 10/24/16 20:46 93 18 95 111/48 10/24/16 20:31 95 17 96 121/49 10/24/16 20:01 99 21 156/107 95 143/60 10/24/16 20:00 Nasal Cannula 3.0 10/24/16 19:46 94 27 95 126/55 10/24/16 19:31 93 14 95 128/58 10/24/16 19:16 93 18 95 148/63 10/24/16 19:01 94 12 154/49 96 130/58 10/24/16 18:46 97 25 95 137/55 10/24/16 18:31 92 19 90/76 90 118/53 10/24/16 18:18 36.7 10/24/16 18:16 89 17 96 62/45 10/24/16 18:01 88 18 96 59/42 10/24/16 18:00 89 18 131/42 60/44 10/24/16 18:00 Nasal Cannula 3.0 10/24/16 17:46 87 19 95 75/49 10/24/16 17:45 86 20 95 10/24/16 17:35 36.5 10/24/16 17:31 84 14 130/45 96 10/24/16 17:30 83 16 10/24/16 17:15 82 19 96 10/24/16 17:01 84 17 126/53 95 118/46 10/24/16 17:00 84 12 98 113/46 10/24/16 17:00 36.5 10/24/16 16:43 83/59 10/24/16 16:20 36.5 10/24/16 16:00 78 15 121/57 10/24/16 15:58 79 14 95 10/24/16 15:58 78 14 10/24/16 15:55 124/49 10/24/16 15:53 78 17 10/24/16 15:53 36.8 10/24/16 15:53 78 17 95 10/24/16 15:50 122/54 10/24/16 15:48 77 17 10/24/16 15:48 77 17 95 10/24/16 15:47 76 17 94 10/24/16 15:47 76 17 10/24/16 15:45 121/49 10/24/16 15:42 77 16 95 10/24/16 15:42 77 16 10/24/16 15:41 118/46 10/24/16 15:37 75 18 10/24/16 15:37 75 18 94 10/24/16 15:36 76 15 125/48 94 10/24/16 15:36 77 15 10/24/16 15:31 79 15 94 10/24/16 15:31 79 15 10/24/16 15:30 119/55 10/24/16 15:26 77 15 10/24/16 15:26 77 15 126/52 95 10/24/16 15:21 77 17 98 10/24/16 15:21 77 17 10/24/16 15:20 17 10/24/16 15:20 76 17 127/50 10/24/16 15:15 78 21 129/53 97 10/24/16 15:15 76 21 10/24/16 15:11 121/57 10/24/16 15:10 76 15 10/24/16 15:10 78 15 96 10/24/16 15:06 130/58 10/24/16 15:05 80 18 10/24/16 15:05 79 18 96 10/24/16 15:00 86 16 10/24/16 15:00 85 16 141/49 93 10/24/16 15:00 36.0 81 18 141/49 98 Mask 10 Laboratory Results: Last 24 Hours Test 10/25/16 03:25 White Blood Count 12.39 K/uL Red Blood Count 3.81 M/uL Hemoglobin 10.9 g/dL Hematocrit 32.6 % Mean Corpuscular Volume 85.6 fL Mean Corpuscular Hemoglobin 28.6 pg Mean Corpuscular Hemoglobin Concent 33.4 g/dl RDW Standard Deviation 42.3 fL RDW Coefficient of Variation 13.5 % Platelet Count 169 K/uL Mean Platelet Volume 11.2 fL Sodium Level 141 mmol/L Potassium Level 4.2 mmol/L Chloride Level 106 mmol/L Carbon Dioxide Level 30 mmol/L Anion Gap 5.0 mmol/L Blood Urea Nitrogen 15 mg/dl Creatinine 0.88 mg/dl Est Creatinine Clear Calc Drug Dose 60.2 ml/min Estimated GFR () 75.0 Estimated GFR (Non- 64.7 BUN/Creatinine Ratio 16.8 Random Glucose 152 mg/dl Calcium Level 7.7 mg/dl Phosphorus Level 2.9 mg/dl Magnesium Level 1.8 mg/dl Resident Tracking Resident Involvement: Resident Care Provided Care Provided: Adult Hospital Medicine (ICU)
[2016-10-25] MEDS: OXYCODONE HCL IR 5 MG TAB (IMMEDIATE RELEASE) PO PRN ×2 (12:11→21:23)
[2016-10-25] MEDS ORDERED: NURSING VERBAL MED ORDER ONE (13:30)
--- NOTE | 2016-10-25 15:57 | SURGERY PROGRESS NOTE ---
DATE: 10/25/2016 DATE: 10/25/2016. Ms. Pompa is seen 1 day status post thoracoscopic right middle lobectomy. She is still on oxygen, but she has a small leak clear. She is going to require some motivation to get out of bed. She does not sound bad. Her x-ray looks good. We just need to get her moving. We will continue to follow along and hopefully will get her out of the hospital in the next few days.
[2016-10-25] MEDS: LACTOBACILLUS ACIDOPHILUS (FLORANEX) TAB PO SCH (21:12)
[2016-10-25] MEDS: PANTOprazole SOD 40 MG TAB PO SCH (21:12)
[2016-10-25] MEDS: ASPIRIN 325 MG ECTAB PO SCH (21:12)
[2016-10-25] MEDS: METOPROLOL SUCC 25MG EXT REL TAB PO SCH (21:18)
[2016-10-26 00:15] VITALS: O2SAT 97
[2016-10-26] MEDS: ACETAMINOPHEN IV 1,000 MG in EMPTY BAG 0 ML IV SCH ×3 (02:00→17:51)
[2016-10-26] MEDS: KETOROLAC TROMETHAMINE 15 MG/ML VIAL IV. SCH ×2 (02:00→10:58)
[2016-10-26] MEDS: LEVOTHYROXINE 150 MCG TAB PO SCH (05:42)
[2016-10-26 07:41] VITALS: BP 155/75; PULSE 78; TEMP 36.4; O2SAT 90
[2016-10-26 07:45] VITALS: O2SAT 90
--- NOTE | 2016-10-26 08:33 | DIAGNOSTIC IMAGING REPORT ---
CHEST ONE VIEW PORTABLE HISTORY: Right middle lobectomy. COMPARISON: Chest 10/25/2016. FINDINGS: Right-sided chest tube is unchanged in position. There is a tiny right apical pneumothorax with a pleural gap of 7 mm. Bibasilar linear densities favor subsegmental atelectasis. Mild right-sided chest wall subcutaneous emphysema. Suture material within the right lung base. The heart is mildly enlarged. Small linear scarlike densities within the right midlung zone favor postoperative change. IMPRESSION: 1. Tiny right apical pneumothorax. Right-sided chest tube is unchanged in position. 3. Bibasilar linear densities persist. This favors atelectasis. Electronically signed by: Zeyad Sandoval M.D. 10/26/2016 8:31 AM Dictated Date/Time: 10/26/2016 8:29 AM
[2016-10-26] MEDS: TIOTROPIUM BROMIDE 5 PUFF/90 MCG INH INH SCH (09:49)
[2016-10-26] MEDS: DOCUSATE SODIUM 100 MG CAP PO SCH ×2 (09:50→20:52)
[2016-10-26] MEDS: BUDESONIDE/FORMOTEROL FUMARATE 160/4.5 60 PUFFS/INHALER INH SCH ×2 (09:50→20:52)
[2016-10-26] MEDS: PAROXETINE 20 MG TAB PO SCH (10:06)
[2016-10-26] MEDS: CHOLECALCIFEROL 1000 INTER.UNIT TAB PO SCH (10:06)
[2016-10-26] MEDS: ENOXAPARIN 40 MG/0.4 ML SYR SQ SCH (10:06)
--- NOTE | 2016-10-26 10:11 | SURGERY PROGRESS NOTE ---
DATE: 10/26/2016 Ms. Pompa is seen today on 10/26/2016. She looks wonderful. She is on room air. Sitting up in a chair. She has been ambulating more. She has no air leak today. If she does not have an air leak tomorrow morning, I am going to remove her chest tube and discharge her in the morning. Her x-ray this morning looked quite good.
[2016-10-26] MEDS: OXYCODONE HCL IR 5 MG TAB (IMMEDIATE RELEASE) PO PRN ×2 (14:52→20:51)
[2016-10-26 16:02] VITALS: BP 146/71; PULSE 81; TEMP 37; O2SAT 90
[2016-10-26] MEDS: MoRPHine SULFATE 2 MG/ML CARP IV PRN ×2 (16:39→23:47)
[2016-10-26 20:00] VITALS: O2SAT 92
[2016-10-26] MEDS: METOPROLOL SUCC 25MG EXT REL TAB PO SCH (20:51)
[2016-10-26] MEDS: PANTOprazole SOD 40 MG TAB PO SCH (20:51)
[2016-10-26] MEDS: ASPIRIN 325 MG ECTAB PO SCH (20:52)
[2016-10-26] MEDS: LACTOBACILLUS ACIDOPHILUS (FLORANEX) TAB PO SCH (20:52)
[2016-10-26 23:38] VITALS: BP 138/80; PULSE 93; TEMP 36.8; O2SAT 86; O2SAT 91
[2016-10-27] MEDS: ACETAMINOPHEN IV 1,000 MG in EMPTY BAG 0 ML IV SCH ×2 (01:55→11:30)
[2016-10-27] MEDS: LEVOTHYROXINE 150 MCG TAB PO SCH (05:45)
[2016-10-27 07:43] VITALS: BP 157/73; PULSE 89; TEMP 36.8; O2SAT 90
[2016-10-27] MEDS: OXYCODONE HCL IR 5 MG TAB (IMMEDIATE RELEASE) PO PRN ×2 (07:55→12:03)
[2016-10-27] MEDS: TIOTROPIUM BROMIDE 5 PUFF/90 MCG INH INH SCH (07:56)
[2016-10-27] MEDS: BUDESONIDE/FORMOTEROL FUMARATE 160/4.5 60 PUFFS/INHALER INH SCH (07:56)
[2016-10-27] MEDS: CHOLECALCIFEROL 1000 INTER.UNIT TAB PO SCH (07:57)
[2016-10-27] MEDS: DOCUSATE SODIUM 100 MG CAP PO SCH (07:57)
[2016-10-27] MEDS: PAROXETINE 20 MG TAB PO SCH (07:57)
[2016-10-27] MEDS: ENOXAPARIN 40 MG/0.4 ML SYR SQ SCH (07:58)
[2016-10-27] MEDS: MoRPHine SULFATE 2 MG/ML CARP IV PRN (09:13)
--- NOTE | 2016-10-27 09:53 | DIAGNOSTIC IMAGING REPORT ---
SINGLE VIEW CHEST CLINICAL HISTORY: Chest tube removal. Postoperative examination. Status post right middle lobe resection. FINDINGS: An AP, portable, upright chest radiograph is compared to study dated 10/26/2016 and correlated with chest CT dated 09/27/2016. The examination is degraded by portable technique, apical lordotic positioning, and patient rotation. The heart is enlarged and there is atherosclerotic calcification of the thoracic aorta. The pulmonary vasculature is noncongested. There are postoperative changes and volume loss consistent with a right middle lobe resection. Airspace opacities are present at both lung bases. The right-sided chest tube has been removed. No definite pneumothorax is seen. No large pleural effusion is seen. The skeletal structures are osteopenic. Degenerative change is noted throughout the thoracic spine. Subcutaneous emphysema is noted along the right chest wall. IMPRESSION: 1. The right chest tube has been removed. No definite pneumothorax is seen. 2. There are postoperative changes consistent with right middle lobe resection. 3. Bibasilar airspace opacities persist, likely representing atelectasis. 4. Cardiomegaly without radiographic evidence of congestive failure. Electronically signed by: Carlton Toscano M.D. 10/27/2016 9:51 AM Dictated Date/Time: 10/27/2016 9:48 AM
[2016-10-27] MEDS ORDERED: RXC5 PO (09:56)
--- NOTE | 2016-10-27 09:58 | Discharge Instructions ---
Discharge Instructions Date of Service Oct 27, 2016. Admission Reason for Admission: Pulmonary Nodule Right Lung Discharge Discharge Diagnosis / Problem: Probable carcinoma Discharge Goals Goal(s): Decrease discomfort Activity Recommendations Activity Limitations: as noted below Lifting Limitations: gradually increase as tolerated Exercise/Sports Limitations: gradually increase as tolerated May Resume Sexual Activity: when tolerated Shower/Bathe: may shower/bathe in 3 days . Instructions / Follow-Up Instructions / Follow-Up My office will call you to make appointment with a chest xray. Current Hospital Diet Patient's current hospital diet: Regular Diet Discharge Diet Recommended Diet: Regular Diet Procedures Procedures Performed: Right Video-assisted Thoracoscopy with Right Middle Lobe Wedge Resection; Mediastinal Lymphadenectomy, Right middle lobectomy Pending Studies Studies pending at discharge: yes List of pending studies: Pathology Medical Emergencies . Who to Call and When: Medical Emergencies: If at any time you feel your situation is an emergency, please call 911 immediately. . Non-Emergent Contact Non-Emergency issues call your: Specialist Call Non-Emergent contact if: temperature is above 101.5, wound has increased drainage, wound has increased redness . "Provider Documentation" section prepared by Rashard Major. VTE Core Measure Inpt VTE Proph given/why not?: Enoxaparin (Lovenox)SQ, SCD's
[2016-10-27 11:10] VITALS: BP 157/73; PULSE 89; TEMP 36.8; O2SAT 90
--- NOTE | 2016-10-27 15:55 | DISCHARGE SUMMARY ---
DISCHARGE DIAGNOSES: 1. Mass with atypical cells, right middle lobe. 2. Chronic obstructive pulmonary disease. 3. Obesity. 4. History of cigarette smoking. HOSPITAL COURSE: Ms. Pompa is a delightful 76-year-old female who is a smoker. She is found to have a mass in her right middle lobe, which is quite concerning. I took her to the operating room on 10/24/2016, did a thoracoscopic wedge resection. This was difficult to cull, as there was a small mass, but pathology felt that this may well represent a carcinoma. They could not cull it on the frozen section. Given the small size of the right middle lobe, I proceeded with a right middle lobectomy and mediastinal lymphadenectomy. The patient is very well postop. She was ambulating in the hallway. She had a small air leak postop but this resolved. She was eventually weaned off oxygen completely. She was tolerating a regular diet. I removed her chest tube on postop day #3 and her chest x-ray looked good afterwards. No evidence of pneumothorax. Overall, the patient did well, although we did not have her final pathology back at the time of discharge. I discharged her home with pain medication, told her to resume her regular medications. The dressing which is placed over her chest tube site on 10/27/2016 is to be taken off on 10/30/2016. She is to shower. I did place an antimicrobial dressing on this. She did look very good at the time of her discharge. MURRAY
== END 2016-10-27 12:26 | disposition home health service (06) | DRG 165 ==
LOC: ENRESERVDT → ENRESERVTM → C.ACU 08:54 → C.MSICU 14:29 → C.MSN 10-25 07:51
PROVIDERS: ADMIT Surgery; ATTEND Surgery
PROC: 0BTD0ZZ Resection of Right Middle Lung Lobe, Open Approach (ICD-10-PCS; principal; 2016-10-24 10:45)
DX: R91.8 Other nonspecific abnormal finding of lung field (principal); I10 Essential (primary) hypertension; J44.9 Chronic obstructive pulmonary disease, unspecified; K21.9 Gastro-esophageal reflux disease without esophagitis; E03.9 Hypothyroidism, unspecified; E78.5 Hyperlipidemia, unspecified; Z87.891 Personal history of nicotine dependence; R91.1 Solitary pulmonary nodule; G89.18 Other acute postprocedural pain; E66.9 Obesity, unspecified; R40.2410 Glasgow coma scale score 13-15, unspecified time

== ENCOUNTER → 2016-10-31 | Outpatient (CLI) | payer OTHER, BC ==
[~2016-10-31] MED LIST changes: -CLON0.5T3 PO; -DEXAMETHASONE SOD INJ 4 MG/ML VIAL ONE; -EpHEDrine SULFATE INJ 50 MG/ML AMP ONE; -FENTANYL CITRATE INJ 50 MCG/1 ML 2 ML VIAL ONE; -GLYCOPYRROLATE INJ 0.2 MG/ML VIAL ONE; -LACTATED RINGER'S 1000ML 1,000 ML IV SCH; -LIDOCAINE HCL 2% 2 ML VIAL (20MG/ML) ONE; -MIDAZOLAM HCL 1 MG/ML 2ML VIAL ONE; -NEOSTIGMINE METHYLSULFATE 5 MG/5 ML SYR ONE; -ONDANSETRON INJ 2 MG/ML 2 ML VIAL ONE; -PHENYLEPHRINE HCL INJ 10 MG/ML VIAL ONE; -PROPOFOL IV EMULSION 10 MG/ML 20 ML VIAL IV ONE; -ROCURONIUM BROMIDE 10 MG/ML 5 ML VIAL ONE; +RXC5 PO
--- NOTE | 2016-10-31 14:25 | DIAGNOSTIC IMAGING REPORT ---
CHEST 2 VIEWS ROUTINE CLINICAL HISTORY: R91.1 Solitary pulmonary nodule postoperative evaluation COMPARISON STUDY: 10/27/2016 FINDINGS: Mildly improved postoperative appearance. Cutaneous emphysematous changes show near complete resolution. No significant post serial pneumothorax. Left lung is clear. Minimal residual right basilar atelectatic change. IMPRESSION: Continued improvement of the patient's postoperative right hemithoracic change. Electronically signed by: Ming Vance M.D. 10/31/2016 2:23 PM Dictated Date/Time: 10/31/2016 2:22 PM
== END | disposition home or self-care (01) ==
LOC: C.RAD1850 14:12
PROVIDERS: ATTEND Surgery
DX: R91.1 Solitary pulmonary nodule (principal)

== ENCOUNTER → 2016-12-12 | Outpatient (CLI) | payer OTHER, BC ==
--- NOTE | 2016-12-12 11:14 | DIAGNOSTIC IMAGING REPORT ---
CHEST 2 VIEWS ROUTINE CLINICAL HISTORY: R91.1 Solitary pulmonary [id number] COMPARISON STUDY: 10/31/2016 FINDINGS: The cardiac and mediastinal contours are normal. There is no evidence of focal pulmonary consolidation. There is no evidence of failure. No pleural effusions are visualized.[ There is tenting of the right hemidiaphragm. There are linear areas of scarring within the right mid and lower lung zone. Postoperative changes are present on the right. IMPRESSION: No active disease in the chest. Electronically signed by: Adithya Mcneal M.D. 12/12/2016 11:13 AM Dictated Date/Time: 12/12/2016 11:12 AM
== END | disposition home or self-care (01) ==
LOC: C.RAD1850 10:32
PROVIDERS: ATTEND Surgery
DX: R91.1 Solitary pulmonary nodule (principal)

== ENCOUNTER → 2017-04-28 | Outpatient (CLI) | payer OTHER, BC ==
--- NOTE | 2017-04-28 14:31 | DIAGNOSTIC IMAGING REPORT ---
(CHEST) THORAX WITHOUT CLINICAL HISTORY: LUNG CA HISTORY OF LOBECTOMY. COMPARISON STUDY: Chest x-ray dated 12/12/2016 CT DOSE: 417.61 mGy.cm TECHNIQUE: CT of the thorax was performed from the thoracic inlet to the lung bases. Images are reviewed in the axial, sagittal, and coronal planes. IV contrast was not administered for this examination. A dose lowering technique was utilized adhering to the principles of ALARA. FINDINGS: Thyroid: Imaged portions of the thyroid gland are normal in appearance. Thoracic aorta: The thoracic aorta is normal in course and caliber, noting standard 3 vessel arch anatomy. Heart: The heart is normal in size and configuration, without pericardial effusion. Lungs and pleural spaces: No pleural effusions are visualized. There is no focal pulmonary consolidation. There are postsurgical changes of a right middle lobectomy. There is a solid 4 mm right lower lobe pulmonary nodule. There are few scattered calcified granulomas present. Mediastinum: There is no mediastinal lymphadenopathy. Dolly: There is no evidence of pathologic hilar adenopathy given the limitations of a noncontrast study Axilla: There is no pathologic axillary lymphadenopathy. Upper abdomen: The gallbladder surgically absent. Skeletal structures: There are no lytic or blastic osseous lesions. IMPRESSION: 1. Post lobectomy changes 2. No evidence of pathologic adenopathy 3. 4 mm right lower lobe pulmonary nodule. 12 month follow-up is recommended. Please refer to below summary of Fleischner criteria recommendations for follow-up of incidental CT nodules (Nedra Buenrostro, Guidelines for management of small pulmonary nodules detected on CT scans: A statement from the Fleischner Society, Radiology 237: [phone].) SOLID NODULES Solitary nodule size: <6 mm * low risk patients: no follow-up needed * high risk patients: optional CT at 12 months Solitary nodule size: 6-8 mm * low risk patients: follow-up at 6-12 months, then consider further follow-up at 18-24 months * high risk patients: initial follow-up CT at 6-12 months and then at 18-24 months if no change Solitary nodule size: >8 mm * either low or high risk patients - consider follow-up CT at 3 months, and/or CT-PET, and/or biopsy Multiple nodules size: <6 mm * low risk patients: no routine follow-up * high risk patients: optional CT at 12 months Multiple nodules size: 6-8 mm * low risk patients: follow-up at 3-6 months, then consider further follow-up at 18-24 months * high risk patients: follow-up at 3-6 months, then at 18-24 months if no change Multiple nodules size: >8 mm * low risk patients: follow-up at 3-6 months, then consider further follow-up at 18-24 months * high risk patients: follow-up at 3-6 months, then at 18-24 months if no change Note: newly detected indeterminate nodule in persons 35 years of age or older. * low risk patients: minimal or absent history of smoking and/or other known risk factors * high risk patients: history of smoking or of other known risk factors (e.g. first degree relative with lung cancer, or exposure to asbestos, radon, uranium) * if a nodule up to 8 mm is partly solid or is ground glass further follow-up is required after 24 months to exclude possible slow growing adenocarcinoma (RUBY) SUBSOLID NODULES Solitary pure ground-glass nodule * nodule size <6 mm - no CT follow-up required * nodule size >=6 mm - follow-up CT at 6-12 months, then every 2 years until 5 years Solitary part-solid nodule * nodule size <6 mm - no CT follow-up required * nodule size >=6 mm - follow-up CT at 3-6 months. If unchanged, and solid component remains <6 mm, then annual follow-up for 5 years Multiple subsolid nodules * nodule size <6 mm - follow-up CT at 3-6 months, consider further follow-up at 2 and 4 years if stable * nodule size >=6 mm - follow-up CT at 3-6 months, subsequent management based on the most suspicious nodule(s) Electronically signed by: Adithya Mcneal M.D. 04/28/2017 2:30 PM Dictated Date/Time: 04/28/2017 2:24 PM
== END | disposition home or self-care (01) ==
LOC: C.CTS 13:59
PROVIDERS: ATTEND Surgery
DX: C34.90 Malignant neoplasm of unspecified part of unspecified bronchus or lung (principal); J44.9 Chronic obstructive pulmonary disease, unspecified; R91.1 Solitary pulmonary nodule; Z90.2 Acquired absence of lung [part of]

== ENCOUNTER → 2017-10-16 | Outpatient (CLI) | payer OTHER, BC ==
--- NOTE | 2017-10-17 15:36 | MAMMOGRAPHY REPORT ---
BILATERAL DIGITAL SCREENING MAMMOGRAM TOMOSYNTHESIS WITH CAD: 10/16/2017 CLINICAL HISTORY: Routine screening. Patient has no complaints. TECHNIQUE: Breast tomosynthesis in addition to standard 2D mammography was performed. Current study was also evaluated with a Computer Aided Detection (CAD) system. COMPARISON: Comparison is made to exams dated: 08/22/2014 mammogram, 11/09/2012 mammogram, and 07/02/20 mammogram. BREAST COMPOSITION: There are scattered areas of fibroglandular density in both breasts. FINDINGS: No suspicious masses, calcifications, or areas of architectural distortion are noted in ei ther breast. There has been no significant interval change compared to prior exams. IMPRESSION: ACR BI-RADS CATEGORY 1: NEGATIVE There is no mammographic evidence of malignancy. A 1 year screening mammogram is recommended. The pa tient will receive written notification of the results. Approximately 10% of breast cancers are not detected with mammography. A negative mammographic report should not delay biopsy if a clinically suggestive mass is present. Elizabeth Gleason M.D. ah/:10/16/2017 15:35:55 [employer] Analyst: Karen Jones, [facility] letter sent: Normal 1/2 BI-RADS Code: ACR BI-RADS Category 1: Negative
== END | disposition home or self-care (01) ==
LOC: C.MAMM 14:34
PROVIDERS: ATTEND Family Medicine
DX: Z12.31 Encounter for screening mammogram for malignant neoplasm of breast (principal)

== ENCOUNTER → 2017-11-06 | Outpatient (CLI) | payer OTHER, BC ==
--- NOTE | 2017-11-06 11:06 | DIAGNOSTIC IMAGING REPORT ---
(CHEST) THORAX WITHOUT CLINICAL HISTORY: C34.90 lung carcinoma COMPARISON STUDY: 04/28/2017 CT DOSE: 438.53 mGycm TECHNIQUE: CT of the thorax was performed from the thoracic inlet to the lung bases. Images are reviewed in the axial, sagittal, and coronal planes. IV contrast was not administered for this examination. A dose lowering technique was utilized adhering to the principles of ALARA. FINDINGS: Thyroid: Imaged portions of the thyroid gland are normal in appearance. Thoracic aorta: The thoracic aorta is normal in course and caliber, noting standard 3 vessel arch anatomy. Heart: There are mild coronary artery calcifications present. Lungs and pleural spaces: There are postsurgical changes of a right middle lobectomy. There is a stable solid 4 mm right lower lobe pulmonary nodule. There is also stable 5 mm right lower lobe pulmonary nodule, which in retrospect remains unchanged the prior study. There are few scattered granulomatous calcifications present. There is no acute parenchymal consolidation. There are no pleural effusions. Mediastinum: There is a stable precarinal lymph node the upper limits of normal in size. There is no evidence of pathologic adenopathy by size criteria Dolly: There is no evidence of pathologic adenopathy given the limitations of a noncontrast study Axilla: There is no evidence of pathologic axillary lymphadenopathy Upper abdomen: The gallbladder surgically absent Skeletal structures: There are no lytic or blastic osseous lesions. IMPRESSION: 1. Postsurgical changes of a right middle lobectomy 2. 4 mm and 5 mm right lower lobe pulmonary nodules, unchanged from the preceding study. Electronically signed by: Adithya Mcneal M.D. 11/06/2017 11:04 AM Dictated Date/Time: 11/06/2017 10:59 AM
== END | disposition home or self-care (01) ==
LOC: C.CTS 10:47
PROVIDERS: ATTEND Surgery
DX: C34.90 Malignant neoplasm of unspecified part of unspecified bronchus or lung (principal)

== ENCOUNTER → 2018-03-05 | Outpatient (CLI) | payer OTHER, BC | END | disposition home or self-care (01) | LOC: C.LABMFLN 11:32 | PROVIDERS: ATTEND Family Medicine | DX: E03.9 Hypothyroidism, unspecified (principal) ==